=== PATIENT | male | born 1995 | race Native Hawaiian/Other Pacific Islander ===

== ENCOUNTER 2017-10-01 22:35 | Emergency (ER) | payer OTHER ==
[~2017-10-01] VITALS: Ht 175.3 cm; Wt 70.4 kg
[2017-10-01 22:39] VITALS: Ht 175.3 cm; Wt 70.4 kg
[2017-10-01] MEDS ORDERED: ACETAMINOPHEN 500 MG TAB PO STA (23:09)
--- NOTE | 2017-10-01 23:12 | EMERGENCY ROOM VISIT NOTE ---
History Report prepared by Patricio: Elicia Salazar Under the Supervision of: Thad GuadarramaO. First contact with patient: 22:56 Chief Complaint: FLU LIKE SX Stated Complaint: HIGH FEVER, FLU, CONGESTION, COUGH, RUNNY NOSE History of Present Illness The patient is a 22 year old male who presents to the Emergency Room with complaints of persistent flu like symptoms that started yesterday morning. The patient states he felt weak all day yesterday. He notes he began to develop a cough, congestion, and fever throughout the day. He reports he took Ibuprofen for his fever which seemed to help temporarily but his fever would spike again. He states his fever got as low as 99 degrees Fahrenheit but nothing less. He notes he took Mucinex for his cough and congestion but it did not seem to help. He states the symptoms started getting worse last night. The patient notes he has been sticking to a liquid diet since yesterday. He notes it is normal for him not to eat too many solid foods while sick. He denies any vomiting or diarrhea. He notes he has burning with urination. He denies any unusual rashes or sores. Source of History: patient Onset: yesterday morning Position: other (global) Timing: other (persistent) Associated Symptoms: + fevers, + cough, + urinary symptoms (burning while urinating), No vomiting, No diarrhea Review of Systems See HPI for pertinent positives & negatives. A total of 10 systems reviewed and were otherwise negative. Past Medical & Surgical Asthma, dust allergy. Family History Hypertension Social History Smoking Status: Current Every Day Smoker Marital Status: single Housing Status: lives with roommate Occupation Status: [employer] student Current/Historical Medications Scheduled Benzonatate (Tessalon Perles), 100 MG PO Q8 Oseltamivir (Tamiflu), 75 MG PO BID Allergies Coded Allergies: No Known Allergies (Unverified , 10/02/17) Physical Exam Vital Signs Date Time Temp Pulse Resp B/P (MAP) Pulse Ox O2 Delivery O2 Flow Rate FiO2 10/02/17 01:02 36.9 91 20 119/80 95 10/02/17 00:32 91 20 119/80 95 Room Air 10/01/17 22:39 36.7 105 18 140/82 92 Room Air Physical Exam GENERAL: alert, ill appearing, well nourished, no distress, non-toxic, diaphoretic EYE EXAM: normal conjunctiva, PERRL and EOM's grossly intact OROPHARYNX: no exudate, no erythema, lips, buccal mucosa, and tongue normal and mucous membranes are moist NECK: supple, no nuchal rigidity, no adenopathy, non-tender LUNGS: Clear to auscultation. Normal chest wall mechanics HEART: no murmurs, S1 normal and S2 normal ABDOMEN: abdomen soft, non-tender, normo-active bowel sounds, no masses, no rebound or guarding. BACK: Back is symmetrical on inspection and there is no deformity, no midline tenderness, no CVA tenderness. SKIN: no rashes and no bruising UPPER EXTREMITIES: upper extremities are grossly normal. LOWER EXTREMITIES: No pitting edema. Medical Decision & Procedures ER Provider Diagnostic Interpretation: XRAY: A single view study was reviewed, no fracture was seen. No cardiomegaly, no effusion, no wide mediastinum, no focal infiltrate. Laboratory Results 10/01/17 23:25 Red Blood Count 5.39, Mean Corpuscular Volume 84.8, Mean Corpuscular Hemoglobin 29.7, Mean Corpuscular Hemoglobin Concent 35.0, Mean Platelet Volume 9.9, Neutrophils (%) (Auto) 81.8, Lymphocytes (%) (Auto) 8.8, Monocytes (%) (Auto) 8.0, Eosinophils (%) (Auto) 0.8, Basophils (%) (Auto) 0.3, Neutrophils # (Auto) 8.49, Lymphocytes # (Auto) 0.91, Monocytes # (Auto) 0.83, Eosinophils # (Auto) 0.08, Basophils # (Auto) 0.03 10/01/17 23:25 Test 10/01/17 23:25 White Blood Count 10.37 K/uL (4.8-10.8) Red Blood Count 5.39 M/uL (4.7-6.1) Hemoglobin 16.0 g/dL (14.0-18.0) Hematocrit 45.7 % (42-52) Mean Corpuscular Volume 84.8 fL (80-100) Mean Corpuscular Hemoglobin 29.7 pg (25-34) Mean Corpuscular Hemoglobin Concent 35.0 g/dl (32-36) Platelet Count 193 K/uL (130-400) Mean Platelet Volume 9.9 fL (7.4-10.4) Neutrophils (%) (Auto) 81.8 % Lymphocytes (%) (Auto) 8.8 % Monocytes (%) (Auto) 8.0 % Eosinophils (%) (Auto) 0.8 % Basophils (%) (Auto) 0.3 % Neutrophils # (Auto) 8.49 K/uL (1.4-6.5) Lymphocytes # (Auto) 0.91 K/uL (1.2-3.4) Monocytes # (Auto) 0.83 K/uL (0.11-0.59) Eosinophils # (Auto) 0.08 K/uL (0-0.5) Basophils # (Auto) 0.03 K/uL (0-0.2) RDW Standard Deviation 38.4 fL (36.4-46.3) RDW Coefficient of Variation 12.4 % (11.5-14.5) Immature Granulocyte % (Auto) 0.3 % Immature Granulocyte # (Auto) 0.03 K/uL (0.00-0.02) Anion Gap 6.0 mmol/L (3-11) Est Creatinine Clear Calc Drug Dose 111.9 ml/min Estimated GFR () 118.4 Estimated GFR (Non- 102.2 BUN/Creatinine Ratio 11.4 (10-20) Calcium Level 8.5 mg/dl (8.5-10.1) Total Bilirubin 0.5 mg/dl (0.2-1) Aspartate Amino Transf (AST/SGOT) 50 U/L (15-37) Alanine Aminotransferase (ALT/SGPT) 41 U/L (12-78) Alkaline Phosphatase 83 U/L (45-117) Total Protein 7.5 gm/dl (6.4-8.2) Albumin 4.2 gm/dl (3.4-5.0) Globulin 3.3 gm/dl (2.5-4.0) Albumin/Globulin Ratio 1.3 (0.9-2) Influenza Type A Antigen POS for Influ A (NEG) Influenza Type B Antigen Neg for Influ B (NEG) Laboratory results per my review. Medications Administered Medications (Trade) Dose Ordered Sig/Mariajose Route Start Time Stop Time Status Last Admin Dose Admin Benzonatate (Tessalon Perles Cap) 100 mg NOW ONCE PO 10/01/17 23:15 10/01/17 23:16 DC 10/01/17 23:24 100 MG Acetaminophen (Tylenol Tab) 1,000 mg NOW STAT PO 10/01/17 23:09 10/01/17 23:10 DC 10/01/17 23:24 1,000 MG Oseltamivir Phosphate (Tamiflu Cap) 75 mg NOW STAT PO 10/02/17 00:40 10/02/17 00:41 DC 10/02/17 00:48 75 MG ECG Indication: other (flu like symptoms) Rate (beats per minute): 96 Rhythm: sinus rhythm Findings: T-wave inversion (in V2), no acute ischemic change, other (normal axis, normal intervals, no conclusive finding for pericarditis) Change: EKG: Patient's electrocardiogram per my interpretation. ED Course 2255: The patient was evaluated in room A2. A complete history and physical exam was performed. 2309: Tylenol Tab 1000 mg PO. 2315: Benzonatate 100 mg PO. 2333: I reviewed EMR and recent ED visits. 0040: Tamiflu Cap 75 mg PO. 0045: I updated the patient with his results. I answered all of the patient's questions at bedside. He is ready for discharge. Medical Decision Differential diagnosis: Etiologies such as viral syndrome, otitis, pharyngitis, pneumonia, influenza, meningitis, urinary tract infection, sepsis, bacteremia, as well as others were entertained. Pt here with flu like sx for 48 hours. Flu + on testing. No evidence of pneumonia, no evidence of UTI despite complaints. Doubt bacteremia/sepsis, hx and exam not consistent with meningitis/encephalitis and did not feel required LP. No sx to strongly suggest pericarditis/myocarditis. Pt improved with meds and IVF here. Discussed f/u, OTC meds, hydration, sx to watch/return for, he verbalized understanding and was agreeable with plan. Medication Reconcilliation Current Medication List: was personally reviewed by me Blood Pressure Screening Patient's blood pressure: Normal blood pressure Impression Primary Impression: Flu Scribe Attestation The scribe's documentation has been prepared under my direction and personally reviewed by me in its entirety. I confirm that the note above accurately reflects all work, treatment, procedures, and medical decision making performed by me. Departure Information Dispostion Home / Self-Care Prescriptions Benzonatate (Tessalon Perles) 100 Mg Cap 100 MG PO Q8 for Cough, #30 CAP Prov: Anay Manning, DO 10/02/17 Oseltamivir (Tamiflu) 75 Mg Cap 75 MG PO BID, #10 CAP Prov: Anay Manning., DO 10/02/17 Referrals No Doctor, Assigned (PCP) Patient Instructions My [facility] Additional Instructions Please continue drinking clear liquids at frequent intervals to stay well hydrated. You may eat as tolerated but it may take several days for your appetite to return to normal. You may use tylenol and ibuprofen/motrin/advil to help control fevers and body aches. Do not take advil/motrin/ibuprofen on an empty stomach. Take the tamiflu as prescribed. If you have any worsening pain, your fevers don't respond to medications, you have trouble breathing or a worsening cough, develop blood in your sputum, develop diarrhea/vomiting, have worsening dizziness or are passing out, feel confused or have worsening headache , or you have any other new or concerning symptoms, please return to the emergency room.
[2017-10-01] MEDS ORDERED: BENZONATATE 100MG CAP PO ONE (23:15)
[2017-10-01 23:51] LABS: BASO % 0.3 %; BASO ABS # 0.03 K/uL (0-0.2); EOS % 0.8 %; EOS ABS # 0.08 K/uL (0-0.5); HEMATOCRIT 45.7 % (42-52); IG# 0.03 K/uL (0.00-0.02); LYMPH % 8.8 %; LYMPH ABS # 0.91 K/uL (1.2-3.4); MEAN CELL VOLUME 84.8 fL (80-100); MEAN CORPUSCULAR HEMOGLOBIN 29.7 pg (25-34); MEAN PLATELET VOLUME 9.9 fL (7.4-10.4); MONO ABS # 0.83 K/uL (0.11-0.59); NEUT % 81.8 %; NEUT ABS # 8.49 K/uL (1.4-6.5); PLATELET COUNT 193 K/uL (130-400); RED CELL DISTRIBUTION WIDTH CV 12.4 % (11.5-14.5); RED CELL DISTRIBUTION WIDTH SD 38.4 fL (36.4-46.3); WHITE BLOOD COUNT 10.37 K/uL (4.8-10.8)
[2017-10-02 00:12] LABS: ALBUMIN 4.2 gm/dl (3.4-5.0); CALCIUM 8.5 mg/dl (8.5-10.1); CREATININE 1.04 mg/dl (0.60-1.40); POTASSIUM 3.8 mmol/L (3.5-5.1)
[2017-10-02 00:15] LABS: TOTAL PROTEIN 7.5 gm/dl (6.4-8.2)
[2017-10-02 00:30] LABS: INFLUENZA B ANTIGEN Neg for Influ B (NEG)
[2017-10-02] MEDS ORDERED: OSELTAMIVIR PHOSPHATE 75 MG CAP PO STA (00:40)
[2017-10-02] MEDS ORDERED: OSEL75CA12 PO (00:55)
[2017-10-02] MEDS ORDERED: BENZ100C84 PO (00:55)
[2017-10-02 01:02] VITALS: BP 119/80; PULSE 91; TEMP 36.9; O2SAT 95
--- NOTE | 2017-10-02 06:40 | DIAGNOSTIC IMAGING REPORT ---
CHEST ONE VIEW PORTABLE CLINICAL HISTORY: cough, fever COMPARISON STUDY: No previous studies for comparison. FINDINGS: The cardiac and mediastinal contours are normal. There is no evidence of focal pulmonary consolidation. There is no evidence of failure. No pleural effusions are visualized.[ A linear opacity at the right lung base, likely represents visualization of a prominent vessel, or artifact.. IMPRESSION: No active disease in the chest. Electronically signed by: Jorge Govea M.D. 10/02/2017 6:39 AM Dictated Date/Time: 10/02/2017 6:38 AM
== END 2017-10-02 01:04 | disposition home or self-care (01) ==
LOC: C.EDB 22:37 → C.EDA 10-02 01:04
DX: J11.1 Influenza due to unidentified influenza virus with other respiratory manifestations (principal); J45.909 Unspecified asthma, uncomplicated; F17.200 Nicotine dependence, unspecified, uncomplicated; Z82.49 Family history of ischemic heart disease and other diseases of the circulatory system

== ENCOUNTER 2017-11-05 15:31 | Emergency (ER) | payer OTHER ==
[~2017-11-05] VITALS: Ht 175.3 cm; Wt 71.1 kg
[~2017-11-05 15:31] MED LIST: BENZ100C84 PO; OSEL75CA12 PO
[2017-11-05 15:47] VITALS: BP 130/84; PULSE 73; TEMP 36.7; O2SAT 99; Ht 175.3 cm; Wt 71.1 kg
[2017-11-05] MEDS ORDERED: AMOX500C3 PO (16:10)
--- NOTE | 2017-11-05 16:12 | EMERGENCY ROOM VISIT NOTE ---
ED Visit Note First contact with patient: 15:50 CHIEF COMPLAINT: Left frontal headache and congestion, nosebleed HISTORY OF PRESENT ILLNESS: This 22-year-old male patient presents to the emergency department ambulatory, complaining of URI symptoms x 1 week. The patient states they have been experiencing left frontal headache, congestion, runny nose, sore throat, cough, chills, and left otalgia. The patient was recently on spring break in [place], and states the headache significantly worsened on the plane. He believes symptoms improved while in [place], and seemed to worsen when he returned, but is uncertain because he drank in the significant amount of alcohol while on the trip. They deny any other symptoms including swollen lymph nodes, fever, nausea, or vomiting. There is pain with swallowing due to the sore throat. The patient describes the drainage from the nose as purulent and bloody, only from the left nare. There is significant sinus pressure and left frontal pain. The patient has taken ibuprofen intermittently. The patient does not recall any known exposure to strep throat. The patient does have a history of sinus infections which have presented similarly in the past. Denies a rash. REVIEW OF SYSTEMS: A 10 system review of systems was performed with positives and pertinent negatives listed in the history of present illness. All other systems were reviewed and are negative. ALLERGIES: None MEDICATIONS: None PMH: None SOCIAL HISTORY: The patient lives locally with his roommate. He is a [employer] student. He denies drug use. He does admit to smoking 1 pack of cigarettes every 4 days. He does admit to alcohol use socially. PHYSICAL EXAM: VITALS: Vitals are noted on the nurse's note and reviewed by myself. Vital signs stable. GENERAL: This is a 22-year-old male, in no acute distress, nondiaphoretic, well- developed well-nourished. SKIN: The skin was without rashes, erythema, edema, or bruising. There is no tenting of the skin. Capillary reflex less than 2 seconds. HEAD: Normocephalic atraumatic. EARS: External auditory canals clear, right tympanic membrane pearly hernandez without erythema, bulging, or effusion. Left TM slightly erythematous with mild effusion. No bulging. EYES: Pupils equal round and reactive to light and accommodation. Conjunctivae without injection, sclerae without icterus. Extraocular movements intact. NOSE: Patent, turbinates with inflammation and erythema on the left. Right turbinates without inflammation or erythema. Purulent rhinorrhea noted from the left nare. Left frontal sinus tenderness. MOUTH: Mucous membranes moist. Tonsils are not enlarged. Pharynx without erythema or exudate. Purulent postnasal drip noted. Uvula midline. Airway patent. Tongue does not deviate. NECK: Supple without nuchal rigidity. No lymphadenopathy. No thyromegaly. Cervical spine is nontender. No JVD. HEART: Regular rate and rhythm without murmurs gallops or rubs. LUNGS: Clear to auscultation bilaterally without wheezes, rales or rhonchi. No dullness to percussion. No retractions or accessory muscle use. MUSCULOSKELETAL: No muscle atrophy, erythema, or edema noted. Full range of motion without joint tenderness in all extremities. No tenderness to palpation. Normal gait. Strength 5/5 throughout. NEURO: Patient was alert and oriented to person place and time. Normal sensation to light and sharp touch. No focal neurological deficits. EMERGENCY DEPARTMENT COURSE/MDM: The patient was seen and evaluated as above. His symptoms are consistent with a left frontal sinusitis. He will be treated with antibiotics at this time with close follow-up by [facility]. The patient was encouraged to return immediately to the emergency department for any worsening symptoms. He is to follow-up at [facility] in 48-72 hours for reevaluation. I did discuss options with the patient including CT scan to rule out ICH or mass, but the patient declines at this time. He is encouraged to return for any worsening symptoms for imaging to be performed at that time. Discharge instructions reviewed, and the patient was discharged home in good condition. I attest that I have personally reviewed the patient's current medication list. Patient was found to have normal blood pressure on screening and does not require follow-up. DIFFERENTIAL DIAGNOSIS: Acute Sinusitis, Acute pharyngitis, URI, Strep Pharyngitis, viral etiology, otitis media, ICH, eustachian tube dysfunction, SAH , tension headache, migraine, malignancy, and others DIAGNOSIS: Left frontal sinusitis Current/Historical Medications Scheduled Amoxicillin (Amoxil), 1,000 MG PO TID Benzonatate (Tessalon Perles), 100 MG PO Q8 Oseltamivir (Tamiflu), 75 MG PO BID Allergies Coded Allergies: No Known Allergies (Unverified , 10/02/17) Vital Signs Date Time Temp Pulse Resp B/P (MAP) Pulse Ox O2 Delivery O2 Flow Rate FiO2 11/05/17 15:47 36.7 73 20 130/84 99 Room Air Departure Information Impression Primary Impression: Acute sinus infection Dispostion Home / Self-Care Condition GOOD Prescriptions Amoxicillin (AMOXIL) 500 Mg Cap 1000 MG PO TID for 10 Days, #60 CAP Prov: Rosario Rivera PA-C 11/05/17 Referrals No Doctor, Assigned (PCP) Patient Instructions ED Headache Sinus, ED Sinusitis Abx Tx, My [facility] Additional Instructions You were seen and evaluated in the emergency department today for a headache which is consistent with an acute left frontal sinus infection. You were prescribed amoxicillin to be taken 3 times daily. This is an antibiotic. All antibiotics have the potential to cause diarrhea. Stop this medication and contact a medical provider if you were to develop any significant adverse side effects including: wheezing, shortness of breath, passing out, vomiting, or a diffuse rash. Always take antibiotics as directed and COMPLETE the ENTIRE course regardless of the improvement of your symptoms. For your sore throat, you may use a 1:1 mixture of liquid Benadryl and liquid Maalox. Gargle and spit this mixture. It will help to soothe the throat and provide some relief. Drink warm tea with honey and lemon, as this will also help to soothe the throat. Gargle with salt water frequently. As discussed, you should take OTC Mucinex and/or Sudafed for your symptoms. Please do not exceed the recommended daily dosages. Ibuprofen(Motrin, Advil) may be used for fever or pain. Use 600mg every six hours as needed. Take with food. Avoid using more than 2400mg in a 24 hour period. Do not use 2400mg per day for more than three consecutive days without physician direction. Prolonged inappropriate use can lead to stomach upset or ulcers. This medication will help with the swelling in your sinuses. (AND/OR) Acetaminophen(Tylenol) may be used for fever or pain. Use 1000mg every six hours as needed. Avoid using more than 3000mg in a 24 hour period. For congestion, you may use Flonase OTC. You may want to consider zinc, echinacea, and vitamin C to help boost your immunity. Please get plenty of rest and drink plenty of fluids. Please return or follow-up with your PCP in 1 week if you are not experiencing any improvement in your symptoms. Return to the emergency department for coughing up blood, difficulty breathing, chest pain, worsening symptoms, or for other concerns. Problem Qualifiers Primary Impression: Acute sinus infection Sinusitis location: frontal Recurrence: non-recurrent Qualified Codes: J01.10 - Acute frontal sinusitis, unspecified
== END 2017-11-05 16:25 | disposition home or self-care (01) ==
LOC: C.EDB 15:32 → C.EDD 16:25
DX: J01.10 Acute frontal sinusitis, unspecified (principal); F17.200 Nicotine dependence, unspecified, uncomplicated